=== PATIENT | male | born 1955 | race Caucasian/White ===

== ENCOUNTER 2018-09-12 10:01 | Emergency (ER) | payer MEDICARE ==
[2018-09-12 10:12] VITALS: BP 155/80
--- NOTE | 2018-09-12 10:17 | ED Physician Documentation ---
PD HPI WOUND RECHECK - Stated complaint Stated Complaint: STITCH REMOVAL - Chief complaint Chief Complaint: Wound - Histroy obtained from History obtained from: Patient - History of Present Illness Location: Right Hand Timing - onset: How many days ago (9 days ago at another facility while he was home is traveling now but due to have sutures removed.) Associated symptoms: No: Fever, Redness, Swelling Recently seen: Emergency Dept (9 days ago for suturing of finger lac.) Review of Systems Constitutional: denies: Fever, Chills Neurologic: denies: Focal weakness, Numbness PD PAST MEDICAL HISTORY - Past Medical History Cardiovascular: None Endocrine/Autoimmune: None - Present Medications Home Medications: Ambulatory Orders Medication Instructions Recorded Confirmed Bisoprolol Fumarate/Hctz 1 each PO DAILY 09/12/18 09/12/18 [Bisoprolol-Hctz 10-6.25 mg Tab] Levothyroxine Sodium [Synthroid] 25 mcg PO 09/12/18 Omeprazole 40 mg PO 09/12/18 Valsartan 160 mg PO DAILY 09/12/18 09/12/18 - Allergies Allergies/Adverse Reactions: Allergies Allergy/AdvReac Type Severity Reaction Status Date / Time Penicillins Allergy Rash Verified 09/12/18 10:38 PD ED PE NORMAL - Vitals Vital signs reviewed: Yes - General General: Alert and oriented X 3, No acute distress, Well developed/nourished - Derm Derm: Normal color, Warm and dry - Extremities Extremities: Other (right hand with lac well healing at right index finger dorsal MCP, with good closure. ) - Neuro Neuro: No motor deficit, No sensory deficit Results - Vitals Vitals: Vital Signs - 24 hr 09/12/18 10:11 Temperature 36.8 C Heart Rate 49 L Respiratory 18 Rate Blood Pressure 155/80 H O2 Saturation 98 Oxygen O2 Source Room air PD MEDICAL DECISION MAKING - ED course Complexity details: considered differential (healed wound for suture removal), d/w patient Departure - Departure Disposition: 01 Home, Self Care Clinical Impression: Visit for suture removal Condition: Stable Record reviewed to determine appropriate education?: Yes Instructions: ED Wound Check Sutr Remove No Infec Comments: Your wound appears good and should be able to do regular activity with the sutures out. Recheck if signs of infection. Discharge Date/Time: 09/12/18 11:19
== END 2018-09-12 11:19 | disposition home or self-care (01) ==
LOC: ED 10:01
DX: S61.210D Laceration without foreign body of right index finger without damage to nail, subsequent encounter (principal)
CPT/HCPCS: 99281; 99283

== ENCOUNTER 2018-12-11 10:44 | Emergency (ER) | payer MEDICARE ==
[2018-12-11 10:59] VITALS: BP 148/79
--- NOTE | 2018-12-11 11:43 | XRAY Report ---
Reason: GLF pain Procedure Date: 12/11/2018 Accession Number: [id number] / [id number] Procedure: XR - Ribs w/PA Chest LT CPT Code: FULL RESULT: EXAM: LEFT RIB RADIOGRAPHY EXAM DATE: 12/11/2018 11:30 AM. CLINICAL HISTORY: GLF, left posterior lower rib pain. COMPARISON: None. TECHNIQUE: 1 view of the chest and 2 views of the ribs. FINDINGS: Bones: Oblique fracture with small displacement in the left posterior lateral eighth rib visualized. There is a slight shortening of the right distal clavicle with associated bony destructive appearance, likely a nonspecific benign finding. Lungs: No focal opacities. No pneumothorax. No pleural effusions. Mediastinum: Heart and mediastinal contours are unremarkable. Other: None. IMPRESSION: 1. Oblique fracture with small displacement in the left posterior lateral eighth rib without left pneumothorax or left pleural effusion. 2. Negative for acute cardiopulmonary process. RADIA
--- NOTE | 2018-12-11 12:34 | ED Physician Documentation ---
PD HPI TRUNK INJURY - Stated complaint Stated Complaint: GLF - Chief complaint Chief Complaint: Back Pain - History obtained from History obtained from: Patient - History of Present Illness Location: Posterior chest, Left chest Type of injury: Fall (he fell backward and landed on the ground, and did not hurt much with that, but then rolled over to the left to get up and rolled onto a rock, with abrupt pain left posterolateral chest/rib.) Timing - onset: How many days ago (3) Timing - duration: Days (3) Timing - details: Abrupt onset, Still present Quality: Pain, Sharp Worsened by: Moving, Palpating, Other (breathing) Associated symtptoms: No: Weakness, Numbness Similar symptoms before: Has not had sx before Review of Systems Constitutional: denies: Fever, Chills Nose: denies: Rhinorrhea / runny nose, Congestion Throat: denies: Sore throat Cardiac: reports: Chest pain / pressure (left posterolateral) Respiratory: denies: Dyspnea, Cough, Wheezing GI: denies: Abdominal Pain, Nausea, Vomiting Neurologic: denies: Confused, Altered mental status, Head injury PD PAST MEDICAL HISTORY - Past Medical History Past Medical History: No Cardiovascular: None Endocrine/Autoimmune: None - Past Surgical History Past Surgical History: Yes - Present Medications Home Medications: Ambulatory Orders Medication Instructions Recorded Confirmed Bisoprolol Fumarate/Hctz 1 each PO DAILY 09/12/18 12/11/18 [Bisoprolol-Hctz 10-6.25 mg Tab] Levothyroxine Sodium [Synthroid] 25 mcg PO DAILY 09/12/18 12/11/18 Omeprazole 40 mg PO DAILY 09/12/18 12/11/18 Valsartan 160 mg PO DAILY 09/12/18 12/11/18 Hydrocodone/Acetaminophen [[place] 1 each PO Q6H PRN #20 tablet 12/11/18 5-325 Tablet] Naproxen 500 mg PO BID #20 tablet 12/11/18 - Allergies Allergies/Adverse Reactions: Allergies Allergy/AdvReac Type Severity Reaction Status Date / Time meperidine [From Demerol] Allergy Hives Verified 12/11/18 10:59 Penicillins Allergy Rash Verified 12/11/18 10:59 - Social History Does the pt smoke?: No Smoking Status: Never smoker Does the pt drink ETOH?: Yes Does the pt have substance abuse?: No - Immunizations Immunizations are current?: Yes PD ED PE NORMAL - Vitals Vital signs reviewed: Yes - General General: Alert and oriented X 3, No acute distress, Well developed/nourished - HEENT HEENT: Atraumatic - Neck Neck: Supple, no meningeal sign, No bony TTP, No adenopathy - Cardiac Cardiac: RRR, No murmur - Respiratory Respiratory: Clear bilaterally, Other (left posterolateral chestwall about rib 7-10 area with local tenderness without crepitance. ) - Abdomen Abdomen: Soft, Non tender - Back Back: No CVA TTP, No spinal TTP - Derm Derm: Normal color, Warm and dry - Extremities Extremities: No tenderness to palpate, Normal ROM s pain - Neuro Neuro: Alert and oriented X 3, No motor deficit, Normal speech Results - Vitals Vitals: Vital Signs - 24 hr 12/11/18 10:56 Temperature 36.0 C L Heart Rate 69 Respiratory 20 Rate Blood Pressure 148/79 H O2 Saturation 99 Oxygen O2 Source Room air - Rads (name of study) chest with ribs Radiology: Prelim report reviewed (oblique line/fracture, nondisplaced, rib 8), EMP read contemporaneously, See rad report PD MEDICAL DECISION MAKING - ED course Complexity details: considered differential, d/w patient Departure - Departure Disposition: 01 Home, Self Care Clinical Impression: Rib fracture Qualifiers: Encounter type: initial encounter Rib fracture type: single rib Fracture type: closed Laterality: left Qualified Code(s): S22.32XA - Fracture of one rib, left side, initial encounter for closed fracture Condition: Stable Record reviewed to determine appropriate education?: Yes Instructions: ED Fx Rib Prescriptions: Hydrocodone/Acetaminophen [[place] 5-325 Tablet] 1 each PO Q6H PRN #20 tablet PRN Reason: Pain Naproxen 500 mg PO BID #20 tablet Comments: Activity as tolerated based on pain and discomfort. Some anti-inflammatory such as naproxen twice daily for the next 7 to 10 days. Take it with food. Use added pain medicine such as Tylenol or hydrocodone if needed for pain. Recheck if not better over the next week to week and a half. Discharge Date/Time: 12/11/18 13:26
[2018-12-11] MEDS ORDERED: HYDROcod/ACETAM 5/325 MG TABLET PO STA (13:02)
[2018-12-11] MEDS ORDERED: IBUPROFEN 600 MG TABLET PO STA (13:02)
== END 2018-12-11 13:26 | disposition home or self-care (01) ==
LOC: ED 10:44
DX: S22.32XA Fracture of one rib, left side, initial encounter for closed fracture (principal); W01.198A Fall on same level from slipping, tripping and stumbling with subsequent striking against other object, initial encounter; Y92.9 Unspecified place or not applicable
CPT/HCPCS: 71101; 99283; A9270

== ENCOUNTER 2020-12-17 15:33 | Emergency (ER) | payer MEDICARE ==
--- OUTSIDE RECORDS SUMMARY | 2020-12-17 16:00 | EXTERNAL MEDICAL SUMMARY RPT | Continuity of Care Document ---
:1955 Demographics Phone Unavailable Preferred Language Unknown Marital Status Unknown Congregational Affiliation Unknown Race Unknown Ethnic Group Unknown Author Organization [facility] Address [address] [id number] Phone Allergies Encounters Medications Problems Results
--- NOTE | 2020-12-17 16:37 | ED Physician Documentation ---
History of Present Illness - Stated complaint Stated Complaint: KNEE PAIN, CALF PAIN, S/P SURGERY - Chief complaint Chief Complaint: Ext Problem - History obtained from History obtained from: Patient - History of Present Illness Timing: How many days ago (9) Pain level max: 6 Pain level now: 5 - Additonal information Additional information: Patient is a 65-year-old male who presents to the emergency department with leg pain and swelling of the left lower extremity for the past 9 days. Had a left total knee arthroplasty 9 days ago. He states he has had bruising and swelling since that time. Contacted the on-call orthopedist today who recommended he come here to be evaluated for DVT. Nothing makes it better or worse. He was on warfarin after the surgery, but is not currently. No fevers. No chills. Worse with walking, better with rest. Review of Systems Constitutional: denies: Fever, Chills Cardiac: denies: Chest pain / pressure, Palpitations Respiratory: denies: Dyspnea, Cough, Wheezing Skin: denies: Rash PD PAST MEDICAL HISTORY - Past Medical History Cardiovascular: None Endocrine/Autoimmune: None - Past Surgical History Past Surgical History: Yes - Present Medications Home Medications: Ambulatory Orders Medication Instructions Recorded Confirmed Bisoprolol/Hydrochlorothiazide 1 each PO DAILY 09/12/18 12/11/18 [Bisoprolol-Hctz 10-6.25 mg Tab] Levothyroxine Sodium [Synthroid] 25 mcg PO DAILY 09/12/18 12/11/18 Omeprazole 40 mg PO DAILY 09/12/18 12/11/18 Valsartan 160 mg PO DAILY 09/12/18 12/11/18 Hydrocodone/Acetaminophen [[place] 1 each PO Q6H PRN #20 tablet 12/11/18 5-325 Tablet] Naproxen 500 mg PO BID #20 tablet 12/11/18 - Allergies Allergies/Adverse Reactions: Allergies Allergy/AdvReac Type Severity Reaction Status Date / Time meperidine [From Demerol] Allergy Hives Verified 12/17/20 15:49 Penicillins Allergy Rash Verified 12/17/20 15:49 - Social History Does the pt smoke?: No Smoking Status: Never smoker Does the pt drink ETOH?: Yes Does the pt have substance abuse?: No - Immunizations Immunizations are current?: Yes PD ED PE NORMAL - Vitals Vital signs reviewed: Yes - General General: Alert and oriented X 3, No acute distress - Derm Derm: Warm and dry - Extremities Extremities: Other (Left lower extremity without signs of infection. There is mild swelling along the entirety of the left lower leg along with bruising consistent with recent surgery. Mild calf tenderness. Neurovascular intact.) - Neuro Neuro: Alert and oriented X 3 - Psych Psych: Normal mood, Normal affect Results - Vitals Vitals: Vital Signs - 24 hr 12/17/20 12/17/20 12/17/20 15:41 17:49 18:33 Temperature 36.8 C Heart Rate 60 66 85 Respiratory 16 17 18 Rate Blood Pressure 142/78 H 198/108 H 190/95 H O2 Saturation 99 100 100 Oxygen O2 Source Room air - Rads (name of study) Duplex ultrasound left lower extremity Radiology: Prelim report reviewed, EMP read contemporaneously, See rad report (No DVT.) PD MEDICAL DECISION MAKING - ED course Complexity details: reviewed results, re-evaluated patient, considered differential, d/w patient, d/w family ED course: Patient with expected ecchymosis and swelling after left total knee replacement. Negative ultrasound for DVT. We will continue his regular postoperative aftercare and follow-up with his surgeon. Patient counseled regarding signs and symptoms for which I believe and urgent re-evaluation would be necessary. Patient with good understanding of and agreement to plan and is comfortable going home at this time This document was made in part using voice recognition software. While efforts are made to proofread this document, sound alike and grammatical errors may occur. Departure - Departure Disposition: 01 Home, Self Care Clinical Impression: Postop check Condition: Good Instructions: ED Wound Check Post Op No Infec Follow-Up: Jovi Chan MD [Primary Care Provider] - Within 1 week Comments: Your ultrasound does not show any blood clots today. The swelling appears typical for after your surgical procedure. Please follow-up with your surgeon for further care. Return if you worsen Discharge Date/Time: 12/17/20 18:33
[2020-12-17 18:34] VITALS: BP 190/95
--- NOTE | 2020-12-17 18:42 | Ultrasound Report ---
PROCEDURE: Duplex Ext Veins Left INDICATIONS: leg swelling, s/p L TKR x 9 days TECHNIQUE: Real-time imaging, as well as color and pulse Doppler interrogation, were performed of the lower extr emity deep veins from the inguinal ligament to the popliteal fossa. COMPARISON: None. FINDINGS: The deep veins are normally compressible, and free of intraluminal thrombus. Color and pu lse Doppler demonstrate normal phasic intraluminal flow. There is normal augmentation response to di stal compression maneuver. Peroneal and posterior tibial veins are patent. IMPRESSION: No left lower extremity DVT. Reviewed by: Corby Pablo MD on 12/17/2020 6:41 PM PDT Approved by: Corby Pablo MD on 12/17/2020 6:41 PM PDT Station ID: [id number]
== END 2020-12-17 18:33 | disposition home or self-care (01) ==
LOC: ED 15:33
DX: M79.662 Pain in left lower leg (principal); R22.42 Localized swelling, mass and lump, left lower limb; Z96.652 Presence of left artificial knee joint
CPT/HCPCS: 99281; 99284

== ENCOUNTER 2022-12-03 21:59 | Emergency (ER) | payer MEDICARE ==
[2022-12-03 22:47] LABS: BASOPHILS % (AUTO) 0.6 %; EOSINOPHILS # (AUTO) 0.1 10^3/uL (0.0-0.7); EOSINOPHILS % (AUTO) 1.9 %; HCT - HEMATOCRIT 30.3 % (42.0-52.0); LYMPHOCYTES # (AUTO) 2.2 10^3/uL (1.5-3.5); LYMPHOCYTES % (AUTO) 32.8 %; MEAN CORPUSCULAR HEMOGLOBIN 33.6 pg (27.0-31.0); MEAN CORPUSCULAR HGB CONC 36.3 g/dL (32.0-36.0); MEAN CORPUSCULAR VOLUME 92.7 fL (80.0-94.0); MEAN PLATELET VOLUME 10.4 fL (7.4-11.4); MONOCYTES # (AUTO) 0.7 10^3/uL (0.0-1.0); MONOCYTES % (AUTO) 10.3 %; NEUTROPHILS # (AUTO) 3.6 10^3/uL (1.5-6.6); PLT - PLATELET COUNT 230 10^3/uL (130-450); RED BLOOD COUNT 3.27 10^6/uL (4.70-6.10); RED CELL DISTRIBUTION WIDTH 11.4 % (12.0-15.0); WHITE BLOOD COUNT 6.7 x10^3/uL (4.8-10.8)
[2022-12-03 23:00] LABS: ALBUMIN 3.5 g/dL (3.2-5.5); ALBUMIN/GLOBULIN RATIO 0.9 (1.0-2.2); BILIRUBIN,TOTAL 0.5 mg/dL (0.2-1.0); CALCIUM 8.8 mg/dL (8.5-10.3); CREATININE 1.2 mg/dL (0.6-1.2); POTASSIUM 3.1 mmol/L (3.5-5.0); TOTAL PROTEIN 7.2 g/dL (6.7-8.2)
[2022-12-04] MEDS ORDERED: SODIUM CHLORIDE 0.9% 1,000 ML IV STA (00:04)
--- NOTE | 2022-12-04 00:04 | ED Physician Documentation ---
History of Present Illness - Stated complaint Stated Complaint: ABNORMAL LABS - Chief complaint Chief Complaint: General - History obtained from History obtained from: Patient - Additonal information Additional information: Advised to come to ED by his outpatient services director. 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 The GI that ordered these tests was called this evening regarding a critical result of sodium 120, and thus the GI physician contacted the patient and advised him to go to ED for further testing, treatment, and possible admission. Patient tells me he is asymptomatic. He denies nausea, dizziness, difficulty with mental focus/concentration. GI physician (Dr. Kika Huber) contacted me just before patient's ED arrival to discuss the case with me. He notes patient stopped budesonide three weeks ago. Dr. Huber is a GI doctor at [facility]. Review of Systems Constitutional: denies: Fever, Chills, Sweats Cardiac: reports: Reviewed and negative Respiratory: reports: Reviewed and negative GI: reports: Reviewed and negative Neurologic: denies: Generalized weakness, Focal weakness, Numbness, Confused, Altered mental status, Headache PD PAST MEDICAL HISTORY - Past Medical History Cardiovascular: None Endocrine/Autoimmune: None - Past Surgical History Past Surgical History: Yes - Present Medications Home Medications: Ambulatory Orders Medication Instructions Recorded Confirmed Bisoprolol/Hydrochlorothiazide 1 each PO DAILY 09/12/18 12/11/18 [Bisoprolol-Hctz 10-6.25 mg Tab] Levothyroxine Sodium [Synthroid] 25 mcg PO DAILY 09/12/18 12/11/18 Omeprazole 40 mg PO DAILY 09/12/18 12/11/18 Valsartan 160 mg PO DAILY 09/12/18 12/11/18 Hydrocodone/Acetaminophen [[place] 1 each PO Q6H PRN #20 tablet 12/11/18 5-325 Tablet] Naproxen 500 mg PO BID #20 tablet 12/11/18 - Allergies Allergies/Adverse Reactions: Allergies Allergy/AdvReac Type Severity Reaction Status Date / Time hydroxychloroquine Allergy Rash Verified 12/03/22 22:27 meperidine [From Demerol] Allergy Hives Verified 12/03/22 22:27 Penicillins Allergy Rash Verified 12/03/22 22:27 - Social History Does the pt smoke?: No Smoking Status: Never smoker Does the pt drink ETOH?: Yes Does the pt have substance abuse?: No - Immunizations Immunizations are current?: Yes PD ED PE NORMAL - Vitals Vital signs reviewed: Yes - General General: Alert and oriented X 3, No acute distress, Well developed/nourished - HEENT HEENT: Moist mucous membranes, Pharynx benign - Cardiac Cardiac: RRR, No murmur - Respiratory Respiratory: No respiratory distress, Clear bilaterally - Abdomen Abdomen: Soft, Non tender - Neuro Neuro: Alert and oriented X 3, 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, No motor deficit, No sensory deficit, Normal speech Results - Vitals Vitals: Oxygen O2 Source Room air - Labs Labs: Laboratory Tests 12/03/22 12/03/22 12/04/22 22:29 22:29 01:17 WBC 6.7 RBC 3.27 L Hgb 11.0 L Hct 30.3 L MCV 92.7 MCH 33.6 H MCHC 36.3 H RDW 11.4 L Plt Count 230 MPV 10.4 Neut # (Auto) 3.6 Lymph # (Auto) 2.2 [place] # (Auto) 0.7 Eos # (Auto) 0.1 Baso # (Auto) 0.0 Absolute Nucleated RBC 0.00 Nucleated RBC % 0.0 Sodium 124 L Potassium 3.1 L Chloride 85 L Carbon Dioxide 26 Anion Gap 13.0 BUN 14 Creatinine 1.2 Estimated GFR (MDRD) 60 L Glucose 81 Serum Osmolality 278 L Calcium 8.8 Total Bilirubin 0.5 AST 31 ALT 27 Alkaline Phosphatase 37 L Total Protein 7.2 Albumin 3.5 Globulin 3.7 Albumin/Globulin Ratio 0.9 L Triglycerides Cholesterol LDL Cholesterol, Calc VLDL Cholesterol HDL Cholesterol LDL/HDL Ratio Cholesterol/HDL Ratio Lipase 49 TSH Urine Osmolality 197 Urine Sodium 12/04/22 12/04/22 12/04/22 01:17 01:23 01:23 WBC RBC Hgb Hct MCV MCH MCHC RDW Plt Count MPV Neut # (Auto) Lymph # (Auto) [place] # (Auto) Eos # (Auto) Baso # (Auto) Absolute Nucleated RBC Nucleated RBC % Sodium 125 L Potassium 3.1 L Chloride 84 L Carbon Dioxide 26 Anion Gap 15.0 H BUN 14 Creatinine 1.1 Estimated GFR (MDRD) 66 L Glucose 85 Serum Osmolality Calcium 8.9 Total Bilirubin AST ALT Alkaline Phosphatase Total Protein Albumin Globulin Albumin/Globulin Ratio Triglycerides 107 Cholesterol 217 H LDL Cholesterol, Calc 76 VLDL Cholesterol 21 HDL Cholesterol 120 LDL/HDL Ratio 0.6 Cholesterol/HDL Ratio 1.8 Lipase TSH Urine Osmolality Urine Sodium 27.0 12/04/22 12/04/22 01:23 04:46 WBC RBC Hgb Hct MCV MCH MCHC RDW Plt Count MPV Neut # (Auto) Lymph # (Auto) [place] # (Auto) Eos # (Auto) Baso # (Auto) Absolute Nucleated RBC Nucleated RBC % Sodium 129 L Potassium 3.0 L Chloride 90 L Carbon Dioxide 25 Anion Gap 14.0 H BUN 12 Creatinine 1.0 Estimated GFR (MDRD) 74 L Glucose 86 Serum Osmolality Calcium 8.7 Total Bilirubin AST ALT Alkaline Phosphatase Total Protein Albumin Globulin Albumin/Globulin Ratio Triglycerides Cholesterol LDL Cholesterol, Calc VLDL Cholesterol HDL Cholesterol LDL/HDL Ratio Cholesterol/HDL Ratio Lipase TSH 0.94 Urine Osmolality Urine Sodium PD Medical Decision Making - ED course Complexity details: reviewed results, re-evaluated patient, considered differential, d/w patient ED course: Sent to ED for hyponatremia, serum sodium 120. On initial draw in ED, sodium is 124 , potassium 3.1. Patient is asymptomatic, particularly when asked of symptoms that would typically be associated with hyponatremia (such as nausea, malaise, difficulty with mental focus, dizziness, GUO). He is given 1 liter NS IV over four hours (250cc/hr). During ED stay, his sodium level increased to 125, then 129 prior to d/c. He is given PO KCL 20meq although final potassium before discharge decreased from 3.1 to 3.0 (given another 20meq KCL prior to d/c). Normal lipid profile (except 217 cholesterol; this is checked because high lipids can cause falsely low sodium level), TSH normal (0.94; hyponatremia can be associated with hypothyroidism). Urine sodium 22, but urine osmoloality and serum osmolality are pending at time of d/c (I contacted the lab and these are "send-out" labs, estimated time to result is 3-5 days). Amongst the possible causes of hyponatremia in this patient's particular situation, thiazide diuretics remain on the differential. He says he takes these for HTN, and that he measures his blood pressures regularly at home and has been running normal blood pressures with some low blood pressures yesterday (though not today) which he attributed to heavy yard work that day. Given that his pressures have been normal / low, and thiazide diuretics could be contributing to, possibly even causing, the hyponatremia, I advised him to stop his thiazide diuretic medication (HCTZ, including the combination antihypertensive with HCTZ in it) for the few days until he is scheduled to meet with his PMD. In my discussion with the GI physician, the cessation of budesonide was raised as possible contributing or causative factor, and some thought was given to stress-dose steroid with rx for taper. After further thought and discussion , it was decided to hold off on reintroduction of steroids (including stress dose such as 100mg hydrocortisone), as the three-week gap since last steroid would seem beyond the timeframe in which such a factor would still be a reasonable contributor/cause to electrolyte abnormality. I discussed test results with patient and return precautions were discussed. He is already scheduled for follow up with PMD in a few days, and GI indicates he will also follow up with patient within the next few days. Departure - Departure Disposition: 01 Home, Self Care Clinical Impression: Hyponatremia, Hypokalemia Condition: Good Instructions: ED Hyponatremia, ED Potassium Deficiency Comments: Your sodium level was very low yesterday on the outpatient test (sodium was 120); this was the reason you were sent to the emergency department for evaluation and treatment. [facility], your sodium level was 124. You were given fluids through the IV which included sodium, and, eventually, your sodium level increased to 129. This is still low (the lower end of the normal range is 135), but not low enough to warrant further treatment nor testing from an emergency nor inpatient standpoint. Certainly, you need to follow-up with your primary care provider regarding the low sodium. Further tests might be needed, and treatment or changing of medications might improve the sodium level or entirely resolve the low sodium issue. As we discussed, one possible cause would be the thiazide diuretic medication that you are taking (HCTZ, hydrochlorothiazide). You have indicated that your primary care provider is going to reevaluate you in the next few days; I think it is appropriate for you to stop the medications that contain HCTZ/hydrochlorothiazide until you see your primary care provider. Continue to measure your blood pressure on a daily basis. You can restart those medications if your blood pressure becomes too high (I would use 160 or higher as the cut off for the systolic for when you should restart the medication and/or 90 or higher for when to restart will regarding the diastolic or lower number). If your blood pressure runs a little bit high for the next few days, it should not cause any problems. High blood pressure tends to cause problems over time and, unless it is particularly high, should not cause any problems over the course of days or even a week. The reason I am recommending to stop those medications is thiazide diuretic such as HCTZ is one potential cause of low sodium. If your sodium levels normalize after stopping those medications, this might provide the answer as to the cause of your low sodium. In the emergency department tonight, a lipid panel was performed because particularly high lipid levels can cause a "false low" sodium level. Your lipid levels are all normal (your cholesterol level was mildly elevated at 217). I also checked your TSH; this is a thyroid test. This was checked because low thyroid (hypothyroid) can also cause low sodium. However, this test result was normal. Your urine sodium was 27. This test result needs to be interpreted along with other tests that are still pending, but your primary care provider can follow-up for those results. The other test that are pending are urine osmolality and serum osmolality (these tests are sent to another hospital and therefore take a few days to result). I am including the urine sodium level here for the benefit of the doctor with whom you follow-up. As we discussed, your potassium level was also low. The initial potassium level was 3.1, with a low normal being 3.5. You are given some potassium orally, but on recheck before discharge, the potassium level was 3.0. You are given a second dose of potassium orally. It is important that you mention the low potassium level to your primary care provider, as they will likely want to also recheck this level in the coming few days or week. Discharge Date/Time: 12/04/22 06:22
[2022-12-04] MEDS ORDERED: POTASSIUM CHLORIDE 20 MEQ TABLET PO STA ×2 (01:40→06:07)
[2022-12-04 01:44] LABS: CHOL/HDL RATIO 1.8 (<5.0); CHOLESTEROL 217 mg/dL; HDL CHOLESTEROL 120 mg/dL; LDL CHOLESTEROL,CALCULATED 76 mg/dL; LDL/HDL RATIO 0.6 (<3.6); TRIGLYCERIDES 107 mg/dL; VLDL CHOLESTEROL 21 mg/dL
[2022-12-04 04:31] LABS: CALCIUM 8.9 mg/dL (8.5-10.3); CREATININE 1.1 mg/dL (0.6-1.2); POTASSIUM 3.1 mmol/L (3.5-5.0)
[2022-12-04] MEDS ORDERED: SODIUM CHLORIDE 0.9% 500 ML IV STA (04:52)
[2022-12-04 05:00] LABS: CALCIUM 8.7 mg/dL (8.5-10.3)
[2022-12-04 06:11] VITALS: BP 149/84
[2022-12-05 14:09] LABS: OSMOLALITY 278 mOsmol/kg (280-301); OSMOLALITY URINE 197 mOsmol/kg (.)
== END 2022-12-04 06:22 | disposition home or self-care (01) ==
LOC: ED 21:59
DX: E87.1 Hypo-osmolality and hyponatremia (principal); E87.6 Hypokalemia; I10 Essential (primary) hypertension; K52.839 Microscopic colitis, unspecified
CPT/HCPCS: 36415; 80048; 80053; 80061; 83690; 83930; 83935; 84300; 84443; 85025; 96360; 96361; 99283; 99284; A9270; 83721

== ENCOUNTER 2024-02-05 10:22 | Outpatient (CLI) | payer MEDICARE ==
--- NOTE | 2024-02-05 10:54 | XRAY Report ---
PROCEDURE: Hand 3+V LT INDICATIONS: PAIN IN LEFT HAND TECHNIQUE: 3 views of the hand(s) acquired. COMPARISON: None. FINDINGS: Bones: Displaced fourth proximal phalange fracture. No suspicious bony lesions. Polyarticular osteoa rthritic degenerative changes. Soft tissues: No suspicious soft tissue calcifications or masses. IMPRESSION: Fourth proximal phalange fracture. Reviewed by: Bernice Ness MD, PhD on 02/05/2024 10:53 AM PDT Approved by: Bernice Ness MD, PhD on 02/05/2024 10:53 AM PDT Station ID: [id number]
== END 2024-02-05 10:23 | disposition home or self-care (01) ==
LOC: DI 10:22
PROVIDERS: ATTEND Physician Assistant
DX: S62.615A Displaced fracture of proximal phalanx of left ring finger, initial encounter for closed fracture (principal)

== ENCOUNTER 2024-03-09 08:52 | Outpatient (CLI) | payer MEDICARE ==
--- NOTE | 2024-03-09 14:11 | XRAY Report ---
PROCEDURE: Finger(s) LT INDICATIONS: DISPLACED FX OF PROXIMAL PHALANX L RING FINGER TECHNIQUE: AP hand, 2 views of the fourth finger(s) acquired. COMPARISON: 02/05/2024 FINDINGS: Bones: Mildly displaced and comminuted fracture lucency at the fourth proximal phalanx is similar to prior. There is no significant bridging callus. Background moderate degenerative changes. Soft tissues: No suspicious calcifications. IMPRESSION: Similar mildly displaced and comminuted fracture of the fourth proximal phalanx. There is no signific ant evidence of bridging callus at this time. Reviewed by: Brendon Pete MD on 03/09/2024 2:10 PM PDT Approved by: Brendon Pete MD on 03/09/2024 2:10 PM PDT Station ID: [id number]
== END 2024-03-09 08:53 | disposition home or self-care (01) ==
LOC: DI 08:52
PROVIDERS: ATTEND Orthopaedic Surgery
DX: S62.615A Displaced fracture of proximal phalanx of left ring finger, initial encounter for closed fracture (principal)

== ENCOUNTER 2024-03-18 16:57 | Inpatient (IN) | payer MEDICARE ==
--- NOTE | 2024-03-18 17:38 | ED Physician Documentation ---
PD HPI ABD PAIN - Stated complaint Stated Complaint: DIZZY/NAUSEA/GI - Chief complaint Chief Complaint: Abd Pain - History obtained from History obtained from: Patient - Additional information Additional information: 68-year-old gentleman with history of microscopic colitis on Entyvio. His GI is in [place]. He broke a finger in January and has been taking frequent naproxen since then. Starting 2 days ago he developed dark and tarry stools and today developed presyncope and one episode of vomiting with a large diarrheal bowel movement on arrival. He has a history of Barahona's as well. Is on a PPI. No history of GI bleeding. PD PAST MEDICAL HISTORY - Past Medical History Past Medical History: Yes Cardiovascular: None Endocrine/Autoimmune: None - Past Surgical History Past Surgical History: Yes - Present Medications Home Medications: Ambulatory Orders Medication Instructions Recorded Confirmed Bisoprolol/Hydrochlorothiazide 1 each PO DAILY 09/12/18 12/11/18 [Bisoprolol-Hctz 10-6.25 mg Tab] Levothyroxine Sodium [Synthroid] 25 mcg PO DAILY 09/12/18 12/11/18 Omeprazole 40 mg PO DAILY 09/12/18 12/11/18 Valsartan 160 mg PO DAILY 09/12/18 12/11/18 Hydrocodone/Acetaminophen [[place] 1 each PO Q6H PRN #20 tablet 12/11/18 5-325 Tablet] Naproxen 500 mg PO BID #20 tablet 12/11/18 - Allergies Allergies/Adverse Reactions: Allergies Allergy/AdvReac Type Severity Reaction Status Date / Time hydroxychloroquine Allergy Rash Verified 03/18/24 17:25 meperidine [From Demerol] Allergy Hives Verified 03/18/24 17:25 Penicillins Allergy Rash Verified 03/18/24 17:25 - Social History Does the pt smoke?: No Smoking Status: Never smoker Does the pt drink ETOH?: Yes Does the pt have substance abuse?: No - Immunizations Immunizations are current?: Yes PD ED PE NORMAL - Vitals Vital signs reviewed: Yes - General General: Alert and oriented X 3, No acute distress - Cardiac Cardiac: RRR, No murmur - Respiratory Respiratory: No respiratory distress, Clear bilaterally - Abdomen Abdomen: Soft, Non tender - Neuro Neuro: Alert and oriented X 3 Eye Opening: Spontaneous Motor: Obeys Commands Verbal: Oriented GCS Score: 15 Results - Vitals Vitals: Vital Signs - 24 hr 03/18/24 03/18/24 17:25 17:27 Temperature 36.9 C Heart Rate 88 61 Respiratory 16 Rate Blood Pressure 108/67 127/80 O2 Saturation 97 96 Oxygen O2 Source Room air - Labs Labs: Laboratory Tests 03/18/24 03/18/24 03/18/24 17:35 17:35 17:35 WBC RBC Hgb Hct MCV MCH MCHC RDW Plt Count MPV Neut # (Auto) Lymph # (Auto) [place] # (Auto) Eos # (Auto) Baso # (Auto) Absolute Nucleated RBC Nucleated RBC % PT 12.0 INR 1.1 Sodium 130 L Potassium 4.4 Chloride 98 L Carbon Dioxide 23 Anion Gap 9.0 BUN 55 H Creatinine 1.3 Estimated GFR (MDRD) 55 L Glucose 127 H Calcium 9.1 Total Bilirubin 0.5 AST 15 ALT 10 Alkaline Phosphatase 24 L Total Protein 6.5 Albumin 3.4 Globulin 3.1 Albumin/Globulin Ratio 1.1 Blood Type A POSITIVE Blood Type Recheck Antibody Screen NEGATIVE Crossmatch IS Only See Detail 03/18/24 03/18/24 17:39 17:39 WBC 6.1 RBC 1.98 L Hgb 7.0 L* Hct 20.3 L MCV 102.5 H MCH 35.4 H MCHC 34.5 RDW 12.0 Plt Count 206 MPV 10.5 Neut # (Auto) 4.0 Lymph # (Auto) 1.6 [place] # (Auto) 0.4 Eos # (Auto) 0.1 Baso # (Auto) 0.0 Absolute Nucleated RBC 0.00 Nucleated RBC % 0.0 PT INR Sodium Potassium Chloride Carbon Dioxide Anion Gap BUN Creatinine Estimated GFR (MDRD) Glucose Calcium Total Bilirubin AST ALT Alkaline Phosphatase Total Protein Albumin Globulin Albumin/Globulin Ratio Blood Type Blood Type Recheck A POSITIVE Antibody Screen Crossmatch IS Only PD Medical Decision Making - ED course ED course: 68-year-old gentleman with microscopic colitis and history of Barahona's esophagus on a PPI has been taking naproxen lately and now presents with dark tarry stools and presyncope. He is hemodynamically stable. Benign abdominal examination. Lab work demonstrates a macrocytic anemia with hemoglobin of 7, normal INR 1.1. Chemistry panel was generally unremarkable save mild hyponatremia. He was administered IV Protonix and fluids and sent over for CT angiography. 1 unit of blood was readied and order for transfusion made. I did discuss the case by phone with our on-call surgeon, Dr. Tejas Ledesma who is happy to follow along and do EGD if necessary. Care Dr. Ching at 7 PM shift change with plan to follow-up on CTA, and medicine consult for admit. Departure - Departure Disposition: 66 [facility] DC/Xfer Clinical Impression: Upper GI bleed Condition: Serious Forms: PCP List
[2024-03-18 17:45] LABS: BASOPHILS % (AUTO) 0.7 %; EOSINOPHILS # (AUTO) 0.1 10^3/uL (0.0-0.7); EOSINOPHILS % (AUTO) 0.8 %; HCT - HEMATOCRIT 20.3 % (42.0-52.0); LYMPHOCYTES # (AUTO) 1.6 10^3/uL (1.5-3.5); LYMPHOCYTES % (AUTO) 26.3 %; MEAN CORPUSCULAR HEMOGLOBIN 35.4 pg (27.0-31.0); MEAN CORPUSCULAR HGB CONC 34.5 g/dL (32.0-36.0); MEAN CORPUSCULAR VOLUME 102.5 fL (80.0-94.0); MEAN PLATELET VOLUME 10.5 fL (7.4-11.4); MONOCYTES # (AUTO) 0.4 10^3/uL (0.0-1.0); MONOCYTES % (AUTO) 6.9 %; PLT - PLATELET COUNT 206 10^3/uL (130-450); RED BLOOD COUNT 1.98 10^6/uL (4.70-6.10); WHITE BLOOD COUNT 6.1 x10^3/uL (4.8-10.8)
[2024-03-18] MEDS ORDERED: iohexoL-300 100 ML VIAL ONE (17:46)
[2024-03-18 17:49] LABS: INR 1.1 (0.8-1.2)
[2024-03-18] MEDS: SODIUM CHLORIDE 0.9% 1,000 ML IV STA (17:54)
[2024-03-18] MEDS: PANTOPRAZOLE 40 MG VIAL IVP STA (17:54)
[2024-03-18 17:59] LABS: ALBUMIN 3.4 g/dL (3.2-5.5); ALBUMIN/GLOBULIN RATIO 1.1 (1.0-2.2); BILIRUBIN,TOTAL 0.5 mg/dL (0.2-1.0); CALCIUM 9.1 mg/dL (8.5-10.3); CREATININE 1.3 mg/dL (0.6-1.3); POTASSIUM 4.4 mmol/L (3.5-4.5); TOTAL PROTEIN 6.5 g/dL (6.4-8.9)
[2024-03-18] MEDS: iohexoL-300 100 ML VIAL IVP ONE (18:49)
--- NOTE | 2024-03-18 19:03 | ED Physician Documentation ---
ED Addendum - Addendum Addendum: 03/18/24 19:03 68yo M w/h/o Barahona's, microscopic colitis on Entyvio, naproxen after prior injury presented with melena, presyncope, vomiting non bloody. Hgb 7, with prior 11. He is receiving protonix, 1u pRBC, with CTA pending. Surgery has been consulted for endoscopy tomorrow. PLAN: when CTA complete, discuss admission with hospitalist. 03/18/24 19:52 On my review of workup, patient had hemoglobin of 7 as discussed, macrocytic, with no leukocytosis or thrombocytopenia. INR within normal limits. CMP with hyponatremia to 130, no recent for comparison, no LFT elevation. CT radiology raed below. I agree with radiology reads of imaging on my independent review of imaging: "FINDINGS: Image quality: Diagnostic. Aorta: Atherosclerotic vascular calcifications. No evidence for dissection. No evidence for aneurysmal dilatation. Origins of the celiac trunk SMA, JULIANNE, and bilateral renal arteries appear patent. Mesenteric vessels are opacified. Right pelvic arteries: Patent without evidence for aneurysmal dilatation, dissection, or occlusion. Left pelvic arteries: Patent without evidence for aneurysmal dilatation, dissection or occlusion. Extravascular soft tissues: Lung bases demonstrate bibasilar atelectasis and likely mild subpleuralscarring. Heart size is normal. Liver and spleen are normal in size and enhancement. Gallbladder is unremarkable. Biliary system is non dilated. Pancreas enhances normally. No adrenal nodules. Kidneys are normal in size and enhancement, without hydronephrosis. No free fluid or air. No retroperitoneal or mesenteric adenopathy. Small fat-containing umbilical hernia without acute inflammation. No suspicious bony lesions. No acute vertebral body compression fractures. Multilevel spondylosis. There is mild wall thickening of the distal stomach and distal duodenum slightly more than expected for degree of distention. No evidence for acute inflammatory changes or findings to suggest perforation/organized fluid collection. There is also moderate colonic diverticulosis without evidence for acute diverticulitis. There is circumferential wall thickening of the sigmoid colon andrectum which appears more prominent than expected for degree of distention. No evidence for extravasation of contrast into the stomach, small bowel, or colon to localize possible source of gastrointestinal bleeding. Hyperdense material noted in sigmoid diverticula which is also visualizedon the noncontrast images and supports hyperdense material within the diverticula rather than hemorrhage. IMPRESSION: CT angiogram of the abdomen and pelvis without findings to localize potential source of gastrointestinal bleeding. Mild wall thickening of the distal stomach, and duodenum greater than expected for degree of distention without associated inflammatory changes. Consider further evaluation with endoscopy. Colonic diverticulosis without acute diverticulitis. There is however, greater than expected wall thickening of the sigmoid colon and rectum which may represent proctocolitis either infectious or inflammatory etiology. No evidence for abdominal aortic aneurysm or acute aortic syndrome. Other chronic/nonacute findings as above. Reviewed by: Bert Yang MD on 03/18/2024 7:24 PM PDT " I placed hospitalist consult at roughly 7:32PM to discuss admission. At this juncture, while alternative etiologies are possible in setting of reported colitis, PUD seems most likely as source of bleed. Patient afebrile, with no leukocytosis, not septic appearing. I spoke with Dr. Shepard at 7:50PM, reviewing case on phone, including there are incidental findings on CT. He kindly accepts patient for admission. Admitting in stable condition.
--- NOTE | 2024-03-18 19:25 | CT Report ---
PROCEDURE: Angio Abdomen/Pelvis INDICATIONS: ugi bleed CONTRAST: 100ml [id number] TECHNIQUE: After the administration of intravenous contrast, 2.5 mm thick sections acquired from the diaphragm t o the symphysis. 10 mm maximum-intensity projection (MIP) reformats were then acquired. For radiati on dose reduction, the following was used: automated exposure control, adjustment of mA and/or kV ac cording to patient size. COMPARISON: No priors examinations available for review FINDINGS: Image quality: Diagnostic. Aorta: Atherosclerotic vascular calcifications. No evidence for dissection. No evidence for aneurysm al dilatation. Origins of the celiac trunk SMA, JULIANNE, and bilateral renal arteries appear patent. Mese nteric vessels are opacified. Right pelvic arteries: Patent without evidence for aneurysmal dilatation, dissection, or occlusion. Left pelvic arteries: Patent without evidence for aneurysmal dilatation, dissection or occlusion. Extravascular soft tissues: Lung bases demonstrate bibasilar atelectasis and likely mild subpleural scarring. Heart size is normal. Liver and spleen are normal in size and enhancement. Gallbladder i s unremarkable. Biliary system is non dilated. Pancreas enhances normally. No adrenal nodules. Ki dneys are normal in size and enhancement, without hydronephrosis. No free fluid or air. No retroperi toneal or mesenteric adenopathy. Small fat-containing umbilical hernia without acute inflammation. N o suspicious bony lesions. No acute vertebral body compression fractures. Multilevel spondylosis. There is mild wall thickening of the distal stomach and distal duodenum slightly more than expected f or degree of distention. No evidence for acute inflammatory changes or findings to suggest perforatio n/organized fluid collection. There is also moderate colonic diverticulosis without evidence for acut e diverticulitis. There is circumferential wall thickening of the sigmoid colon and rectum which appe ars more prominent than expected for degree of distention. No evidence for extravasation of contrast into the stomach, small bowel, or colon to localize possible source of gastrointestinal bleeding. Hyp erdense material noted in sigmoid diverticula which is also visualized on the noncontrast images and supports hyperdense material within the diverticula rather than hemorrhage. IMPRESSION: CT angiogram of the abdomen and pelvis without findings to localize potential source of gastrointesti nal bleeding. Mild wall thickening of the distal stomach, and duodenum greater than expected for degree of distenti on without associated inflammatory changes. Consider further evaluation with endoscopy. Colonic diverticulosis without acute diverticulitis. There is however, greater than expected wall thi ckening of the sigmoid colon and rectum which may represent proctocolitis either infectious or inflam matory etiology. No evidence for abdominal aortic aneurysm or acute aortic syndrome. Other chronic/nonacute findings as above. Reviewed by: Bert Yang MD on 03/18/2024 7:24 PM PDT Approved by: Bert Yang MD on 03/18/2024 7:24 PM PDT Station ID: [id number]
[2024-03-18] MEDS ORDERED: SODIUM CHLORIDE FLUSH 0.9% 10 ML SYRINGE IVP PRN (20:05)
[2024-03-18] MEDS ORDERED: hydrALAZINE INJ 20 MG/ML VIAL IVP PRN (20:11)
--- NOTE | 2024-03-18 20:16 | HISTORY & PHYSICAL EXAMINATION ---
Chief Complaint - Chief Complaint Chief Complaint: Dizziness and dark tarry stools History of Present Illness - Admitted From Admitted From:: ED - History Obtained From Records Reviewed: EMR History obtained from: Patient and and ED Exam Limitations: Telemedicine - History of Present Illness HPI Comment/Other: 68M c microscopy colitis, htn, and hypothyroidism who presents to the ED with dizziness that started this morning when he woke up. He has been having dark tarry stools for the past three days. Patient reports being on Advil and then recently Naproxen for a broken finger. Patient denies any new medications. No trauma. No n/v. No chest pain. No palpitation. No SOB. No trauma. No LOC Here in the ED, patient is noted for hgb 7 which is drop from baseline 11. ED spoke with Gen surgery who will consult and provide endoscopy. History - Past Medical History Cardiovascular: reports: None Endocrine/Autoimmune: reports: None MRSA Hx?: No Meds/Allgy - Home Medications Home Medications: Ambulatory Orders Medication Instructions Recorded Confirmed Bisoprolol/Hydrochlorothiazide 1 each PO DAILY 09/12/18 12/11/18 [Bisoprolol-Hctz 10-6.25 mg Tab] Levothyroxine Sodium [Synthroid] 25 mcg PO DAILY 09/12/18 12/11/18 Omeprazole 40 mg PO DAILY 09/12/18 12/11/18 Valsartan 160 mg PO DAILY 09/12/18 12/11/18 Hydrocodone/Acetaminophen [[place] 1 each PO Q6H PRN #20 tablet 12/11/18 5-325 Tablet] Naproxen 500 mg PO BID #20 tablet 12/11/18 - Allergies Allergies/Adverse Reactions: Allergies Allergy/AdvReac Type Severity Reaction Status Date / Time hydroxychloroquine Allergy Rash Verified 03/18/24 17:25 meperidine [From Demerol] Allergy Hives Verified 03/18/24 17:25 Penicillins Allergy Rash Verified 03/18/24 17:25 Review of Systems - Other Findings Other Findings: negative unless mentioned differently Exam - Vital Signs Reviewed Vital Signs: Yes Vital Signs: Vital Signs x48h Temp Pulse Pulse Resp BP BP Pulse Ox 03/18/24 19:24 37.4 C 71 18 110/71 100 03/18/24 19:02 37.5 C 69 16 117/76 100 03/18/24 17:27 61 127/80 96 03/18/24 17:25 36.9 C 88 16 108/67 97 - Physical Exam General Appearance: positive: No acute distress, Alert Eyes Bilateral: positive: Normal inspection ENT: positive: ENT inspection nml Neck: positive: Nml inspection, Trachea midline Respiratory: positive: No respiratory distress Cardiovascular: positive: Regular rate & rhythm (per ED) Abdomen: positive: Non-tender (per ED) Skin: positive: Color nml Neurologic/Psychiatric: positive: Oriented x3, CN's nml (2-12) Conclusion/Plan - Problem List (1) Upper GI bleed Conclusion/Plan: 2/2 NSAID use. Gastritis vs PUD. Stop NSAID and cover c acetaminophen and [place]. PPI gtt. NPO. monitor hgb/hct q6. patient accepts blood transfusion and u nderstand risk and benefit. ED ordered patient 1 unit in the ED. Gen surg consult for EGD. (2) Anemia Conclusion/Plan: 2/2 UGIB. getting 1 unit transfusion. monitor hgb/hct q 6 (3) Hypertension Conclusion/Plan: managed. hold home antihypertensive. prn hydralazine. monitor BP c repeat vital checks (4) Hypothyroidism Conclusion/Plan: managed. restart home levothyroxine. - Lab Results Lab results reviewed: Yes Fish Bones: 03/18/24 17:39 03/18/24 17:35 - Diagnostic Imaging Results Diagnostic Imaging Results: positive: Final report reviewed Diagnostic Imaging Results Comments: reviewed Core Measures - Anticipated LOS I expect patient to be DC'd or transferred within 96 hours.: No - Issues Hospital Issues and Management Plan: The patient consented to receive this telemedicine service, which I performed via live two-way audiovisual equipment. The patient is at ([facility]) and I am physically in [facility]. A nurse assisted me in the visit. - DVT/VTE - Prophylaxis VTE/DVT Device ordered at admit?: Yes Telemedicine Consult Details - Provider Location & Consult Time Telemedicine consultation conducted via videoconferencing?: Yes List names and roles of persons who participated in consult:: Patient. . ED Telemedicine provider location:: [facility] Time Telemedicine consult began:: 19:48 Time Telemedicine consult completed:: 20:38
[2024-03-18] MEDS: SODIUM CHLORIDE 0.9% 1,000 ML IV SCH (21:31)
[2024-03-18] MEDS: PANTOPRAZOLE 40 MG in SODIUM CHLORIDE 0.9% 100ML 100 ML IV ONE (21:31)
[2024-03-18] MEDS: ACETAMINOPHEN 325 MG TABLET PO PRN (21:38)
[2024-03-18] MEDS: PANTOPRAZOLE 80 MG in SODIUM CHLORIDE 0.9% 100ML 100 ML IV SCH (22:12)
[2024-03-19] MEDS: SODIUM CHLORIDE FLUSH 0.9% 10 ML SYRINGE IVP SCH (01:00)
[2024-03-19] MEDS: HYDROcod/ACETAM 5/325 MG TABLET PO PRN (02:09)
[2024-03-19 05:42] LABS: CALCIUM 8.5 mg/dL (8.5-10.3); CREATININE 1.2 mg/dL (0.6-1.3); MAGNESIUM 1.6 mg/dL (1.7-2.3); PHOSPHORUS 3.5 mg/dL (2.5-5.0); POTASSIUM 4.1 mmol/L (3.5-4.5)
[2024-03-19 05:49] LABS: HGB - HEMOGLOBIN 7.1 g/dL (14.0-18.0); MEAN CORPUSCULAR HEMOGLOBIN 34.8 pg (27.0-31.0); MEAN CORPUSCULAR HGB CONC 35.7 g/dL (32.0-36.0); MEAN CORPUSCULAR VOLUME 97.5 fL (80.0-94.0); MEAN PLATELET VOLUME 10.5 fL (7.4-11.4); RED BLOOD COUNT 2.04 10^6/uL (4.70-6.10); RED CELL DISTRIBUTION WIDTH 13.8 % (12.0-15.0); WHITE BLOOD COUNT 4.9 x10^3/uL (4.8-10.8)
[2024-03-19 05:50] LABS: HCT - HEMATOCRIT 20.4 % (42.0-52.0)
--- NOTE | 2024-03-19 08:08 | CONSULTATION NOTE ---
Referring Provider Consult Date: 03/19/24 Chief Complaint - Chief Complaint Chief Complaint: he was having dark bms for several days and started to feel weak History of Present Illness - History Obtained From Records Reviewed: yes History obtained from: pt Exam Limitations: none - History of Present Illness HPI Comment/Other: recently started nsaids. history barrretts esophagus and egd every 2 years for the last 15 years. last egd a 3 to 4 months ago in [place]. he states his barretts has been controlled. he had a large bm and n/v last evening. he received blood since admit. today he feels much improved. no further bms and no nausea. History - Past Medical History Cardiovascular: reports: Hypertension Endocrine/Autoimmune: reports: None, HyPOthyroidism GI: reports: GI bleed, Other MRSA Hx?: No Meds/Allgy - Home Medications Home Medications: Ambulatory Orders Medication Instructions Recorded Confirmed Bisoprolol/Hydrochlorothiazide 1 each PO DAILY 09/12/18 12/11/18 [Bisoprolol-Hctz 10-6.25 mg Tab] Levothyroxine Sodium [Synthroid] 25 mcg PO DAILY 09/12/18 12/11/18 Omeprazole 40 mg PO DAILY 09/12/18 12/11/18 Valsartan 160 mg PO DAILY 09/12/18 12/11/18 Hydrocodone/Acetaminophen [[place] 1 each PO Q6H PRN #20 tablet 12/11/18 5-325 Tablet] Naproxen 500 mg PO BID #20 tablet 12/11/18 - Allergies Allergies/Adverse Reactions: Allergies Allergy/AdvReac Type Severity Reaction Status Date / Time hydroxychloroquine Allergy Rash Verified 03/18/24 17:25 meperidine [From Demerol] Allergy Hives Verified 03/18/24 17:25 Penicillins Allergy Rash Verified 03/18/24 17:25 Review of Systems - Other Findings Other Findings: 10 pt ros as above otherwise unremarkable Exam - Vital Signs Vital Signs: Vital Signs x48h Temp Pulse Resp BP Pulse Ox 03/19/24 04:57 36.8 C 58 L 14 137/64 H 98 - Physical Exam General Appearance: positive: No acute distress, Alert Eyes Bilateral: positive: PERRL, EOMI ENT: positive: No signs of dehydration Neck: positive: No JVD, Trachea midline Respiratory: positive: No respiratory distress Abdomen: positive: Non-tender, No distention Neurologic/Psychiatric: positive: Oriented x3 Conclusion/Plan - Problem List (1) Upper GI bleed Conclusion/Plan: clinically his ugi bleed has resolved. he feels much improved. agree with current care. egd is offered. he prefers to follow up with his gi md in [place]. ok to have clears and if his h/h remains stable soft diet later today. if he appears to still be bleeding plan egd later today. - Lab Results Lab results reviewed: Yes Fish Bones: 03/19/24 05:12 03/19/24 05:12
[2024-03-19] MEDS: LEVOTHYROXINE 25 MCG TABLET PO SCH (08:45)
--- NOTE | 2024-03-19 11:26 | PHARMACY PROGRESS NOTE ---
- Best Possible Medication History Admit Date and Time: 03/18/242004 Processed by: Pharmacy Medication History completed: Yes Patient Interview: Completed (PER SURESCRIPTS AND EFREN RECORDS IN ADDITION TO PT INTERVIEW) Secondary Source(s): Physician records, Insurance records As the person ultimately responsible for medication therapy, providers are able to order a medication from an existing home medication list in [facility] via the "Reconcile Routine" prior to Confirmation of that medication by youth accommodation support worker. Such practice is discouraged except when the physician, in their clinical judgment, deems that a medical need exists for a medication without regard to previous use.
--- NOTE | 2024-03-19 13:45 | ANESTHESIA ---
Pre-Anesthesia VS, & Labs - Diagnosis GI bleed, anemia - Procedure EGD Vital Signs: Temp Pulse Resp BP Pulse Ox O2 Flow Rate 37 C 55 L 18 126/67 100 03/19/24 12:31 03/19/24 12:31 03/19/24 12:31 03/19/24 12:31 03/19/24 12:31 Height: 5 ft 9 in Weight (kg): 70 kg Body Mass Index: 22.8 BMI Classification: Normal - NPO Last Food Intake: 1030- 1/2 cup melon - Lab Results Current Lab Results: Laboratory Tests 03/19/24 11:08: Hgb 6.3 L* 03/19/24 05:12: Sodium 133 L, Potassium 4.1, Chloride 104, Carbon Dioxide 22, Anion Gap 7.0, BUN 57 H, Creatinine 1.2, Estimated GFR (MDRD) 60 L, Glucose 93, Calcium 8.5, Phosphorus 3.5, Magnesium 1.6 L 03/19/24 05:12: WBC 4.9, RBC 2.04 L, Hgb 7.1 L, Hct 20.4 L, MCV 97.5 H, MCH 34.8 H, MCHC 35.7, RDW 13.8, Plt Count 150, MPV 10.5 03/19/24 02:11: Hgb 7.2 L 03/18/24 17:39: Blood Type Recheck A POSITIVE 03/18/24 17:39: WBC 6.1, RBC 1.98 L, Hgb 7.0 L*, Hct 20.3 L, MCV 102.5 H, MCH 35.4 H, MCHC 34.5, RDW 12.0, Plt Count 206, MPV 10.5, Neut # (Auto) 4.0, Lymph # (Auto) 1.6, [place] # (Auto) 0.4, Eos # (Auto) 0.1, Baso # (Auto) 0.0, Absolute Nucleated RBC 0.00, Nucleated RBC % 0.0 03/18/24 17:35: Sodium 130 L, Potassium 4.4, Chloride 98 L, Carbon Dioxide 23, Anion Gap 9.0, BUN 55 H, Creatinine 1.3, Estimated GFR (MDRD) 55 L, Glucose 127 H, Calcium 9.1, Total Bilirubin 0.5, AST 15, ALT 10, Alkaline Phosphatase 24 L, Total Protein 6.5, Albumin 3.4, Globulin 3.1, Albumin/Globulin Ratio 1.1 03/18/24 17:35: PT 12.0, INR 1.1 03/18/24 17:35: Blood Type A POSITIVE, Antibody Screen NEGATIVE, Crossmatch IS Only See Detail Lab results reviewed: Yes Fish Bones: 03/19/24 11:08 03/19/24 05:12 Home Medications and Allergies Home Medications: Ambulatory Orders Amlodipine Besylate [Norvasc] 1 tab PO DAILY 03/19/24 Diphenoxylate/Atropine [Lomotil] 1 tab PO DAILY 03/19/24 Levothyroxine Sodium [Synthroid] 1 tab PO DAILY 03/19/24 Valsartan 1 tab PO DAILY 03/19/24 Active Medications Acetaminophen (Acetaminophen 325 Mg Tablet) 650 mg PO Q4HR PRN PRN Reason: Pain 1 to 4, or Fever Last Admin: 03/19/24 05:00 Dose: 650 mg Hydrocodone Bitart/Acetaminophen (Hydrocod/Acetam 5/325 Mg Tablet) 1 tab PO Q4HR PRN PRN Reason: Pain 5 to 7 Last Admin: 03/19/24 02:09 Dose: 1 tab Hydralazine HCl (Hydralazine Inj 20 Mg/Ml Vial) 10 mg IVP Q6HR PRN PRN Reason: [id number]>160 Pantoprazole Sodium 80 mg/ (Sodium Chloride) 100 mls @ 10 mls/hr IV .Q10H [facility] Last Admin: 03/19/24 07:42 Dose: 10 mls/hr Sodium Chloride (Normal Saline 0.9%) 1,000 mls @ 50 mls/hr IV .Q20H [facility] Last Admin: 03/18/24 21:31 Dose: 50 mls/hr Levothyroxine Sodium (Levothyroxine 25 Mcg Tablet) 25 mcg PO DAILY [facility] Last Admin: 03/19/24 08:45 Dose: 25 mcg Ondansetron HCl (Ondansetron 4 Mg/2 Ml Vial) 4 mg IVP Q6HR PRN PRN Reason: Nausea / Vomiting Sodium Chloride (Sodium Chloride Flush 0.9% 10 Ml Syringe) 10 ml IVP PRN PRN PRN Reason: NEEDED PER PROVIDER ORDERS Sodium Chloride (Sodium Chloride Flush 0.9% 10 Ml Syringe) 10 ml IVP 0100,0900,1700 [facility] Last Admin: 03/19/24 12:24 Dose: Not Given Omeprazole 40 mg PO DAILY 09/12/18 Amlodipine Besylate [Norvasc] 1 tab PO DAILY 03/19/24 Diphenoxylate/Atropine [Lomotil] 1 tab PO DAILY 03/19/24 Levothyroxine Sodium [Synthroid] 1 tab PO DAILY 03/19/24 Valsartan 1 tab PO DAILY 03/19/24 Allergies/Adverse Reactions: Allergies Allergy/AdvReac Type Severity Reaction Status Date / Time hydroxychloroquine Allergy Rash Verified 03/18/24 17:25 meperidine [From Demerol] Allergy Hives Verified 03/18/24 17:25 Penicillins Allergy Rash Verified 03/18/24 17:25 Anes History & Medical History - Anesthetic History Anesthesia Complications: reports: No previous complications - Medical History Cardiovascular: reports: Hypertension Pulmonary: reports: None Gastrointestinal: reports: GI bleed, Other Urinary: reports: None Neuro: reports: None Musculoskeletal: reports: None Endocrine/Autoimmune: reports: HyPOthyroidism Blood Disorders: reports: Anemia Skin: reports: None Smoking Status: Never smoker Psychosocial: reports: No issues indicated History of Cancer?: No - Surgical History General: reports: Colonoscopy, EGD Exam General: Alert, Oriented x3, Cooperative, No acute distress Dental: WNL Mouth Openin Fingerbreadth Neck Mobility: Normal Mallampati classification: II Thyromental Distance: 4-6 cm Mental/Cognitive Status: Alert/Oriented X3, Normal for patient Plan Anesthesia Type: General, Total IV Consent for Procedure(s) Verified and Reviewed: Yes Code Status: Attempt Resuscitation ASA classification: 3-Severe systemic disease Is this case an emergency?: Yes
--- NOTE | 2024-03-19 14:50 | PROVIDER PROGRESS NOTE ---
Subjective - Prog Note Date Prog Note Date: 03/19/24 Prog Note Time: 15:00 - Subjective Pt reports feeling: Improved, No change, Worse Subjective: This patient is a 68 year-old with a past medical history of colitis, hypertension, Barretts esophagus, and hypothyroid who came into the emergency department yesterday with dizziness that started in the morning. He is seen by GI in [place] and has had an EGD every two years for the past 15 years. He had a left finger fracture in January and has been taking naproxen daily since then. Pt also has chronic back pain. Two days prior to his ED visit, he developed dark/tarry stools and dizziness with presyncope. His baseline hemoglobin is 11 and his hemoglobin in the ED was 7. He was transfused with one unit of PRBCs and his hemoglobin increased to 7.2 overnight. He was made NPO and general surgery was consulted for EGD. He felt improved this morning after the blood products and his diet was advanced as general surgery, who felt that his bleed had resolved clinically. After eating this morning, the patient had a small bowel movement of dark/tarry stool and his repeat hemoglobin fell to 6.3. Pt was mad NPO and general surgery plans to take the patient for EGD this afternoon after a second unit of PRBCs. The patient complains of chronic back pain with movement, but denies any other pain. He states no chest pain, shortness of breath, dizziness, nausea, vomiting, or abdominal pain. States he feels better today. Plan for a second unit of PRBCs and EGD this afternoon. Reevaluate after EGD is competed. Objective - Vital Signs/Intake & Output Reviewed Vital Signs: Yes Vital Signs: Vital Signs x48h Temp Pulse Resp BP Pulse Ox 03/19/24 12:31 37 C 55 L 18 126/67 100 03/19/24 12:10 36.3 C L 59 L 18 119/69 99 03/19/24 09:30 36.6 C 57 L 18 126/70 99 Intake & Output: Intake & Output 03/16/24 03/17/24 03/18/24 03/19/24 23:59 23:59 23:59 23:59 Intake Total 1300 335 Output Total 350 1400 Balance 950 -1065 - Objective General Appearance: positive: No acute distress, Alert Eyes Bilateral: positive: Normal inspection, PERRL ENT: positive: ENT inspection nml, Pharynx nml Neck: positive: Nml inspection, Thyroid nml, No JVD, Trachea midline Respiratory: positive: Chest non-tender, No respiratory distress, Breath sounds nml Cardiovascular: positive: Regular rate & rhythm, No murmur, No gallop Abdomen: positive: Non-tender, No organomegaly, Nml bowel sounds, No distention. negative: Tenderness Skin: positive: No rash, Warm, Dry Extremities: positive: Non-tender, Nml appearance Neurologic/Psychiatric: positive: Oriented x3, Mood/affect nml - Lab Results Fish Bones: 03/19/24 11:08 03/19/24 05:12 Other Labs: Lab Results x24hrs 03/19/24 03/19/24 03/19/24 Range/Units 11:08 05:12 05:12 WBC 4.9 (4.8-10.8) x10^3/uL RBC 2.04 L (4.70-6.10) 10^6/uL Hgb 6.3 L* 7.1 L (14.0-18.0) g/dL Hct 20.4 L (42.0-52.0) % MCV 97.5 H (80.0-94.0) fL MCH 34.8 H (27.0-31.0) pg MCHC 35.7 (32.0-36.0) g/dL RDW 13.8 (12.0-15.0) % Plt Count 150 (130-450) 10^3/uL MPV 10.5 (7.4-11.4) fL Neut # (Auto) (1.5-6.6) 10^3/uL Lymph # (Auto) (1.5-3.5) 10^3/uL [place] # (Auto) (0.0-1.0) 10^3/uL Eos # (Auto) (0.0-0.7) 10^3/uL Baso # (Auto) (0.0-0.1) 10^3/uL Absolute Nucleated RBC x10^3/uL Nucleated RBC % /100WBC PT (9.9-12.6) secs INR (0.8-1.2) Sodium 133 L (135-145) mmol/L Potassium 4.1 (3.5-4.5) mmol/L Chloride 104 (101-111) mmol/L Carbon Dioxide 22 (21-32) mmol/L Anion Gap 7.0 (6-13) BUN 57 H (6-20) mg/dL Creatinine 1.2 (0.6-1.3) mg/dL Estimated GFR (MDRD) 60 L (>89) Glucose 93 (74-104) mg/dL Calcium 8.5 (8.5-10.3) mg/dL Phosphorus 3.5 (2.5-5.0) mg/dL Magnesium 1.6 L (1.7-2.3) mg/dL Total Bilirubin (0.2-1.0) mg/dL AST (10-42) IU/L ALT (10-60) IU/L Alkaline Phosphatase (42-121) IU/L Total Protein (6.4-8.9) g/dL Albumin (3.2-5.5) g/dL Globulin (2.1-4.2) g/dL Albumin/Globulin Ratio (1.0-2.2) Blood Type Blood Type Recheck Antibody Screen Crossmatch IS Only 03/19/24 03/18/24 03/18/24 Range/Units 02:11 17:39 17:39 WBC 6.1 (4.8-10.8) x10^3/uL RBC 1.98 L (4.70-6.10) 10^6/uL Hgb 7.2 L 7.0 L* (14.0-18.0) g/dL Hct 20.3 L (42.0-52.0) % MCV 102.5 H (80.0-94.0) fL MCH 35.4 H (27.0-31.0) pg MCHC 34.5 (32.0-36.0) g/dL RDW 12.0 (12.0-15.0) % Plt Count 206 (130-450) 10^3/uL MPV 10.5 (7.4-11.4) fL Neut # (Auto) 4.0 (1.5-6.6) 10^3/uL Lymph # (Auto) 1.6 (1.5-3.5) 10^3/uL [place] # (Auto) 0.4 (0.0-1.0) 10^3/uL Eos # (Auto) 0.1 (0.0-0.7) 10^3/uL Baso # (Auto) 0.0 (0.0-0.1) 10^3/uL Absolute Nucleated RBC 0.00 x10^3/uL Nucleated RBC % 0.0 /100WBC PT (9.9-12.6) secs INR (0.8-1.2) Sodium (135-145) mmol/L Potassium (3.5-4.5) mmol/L Chloride (101-111) mmol/L Carbon Dioxide (21-32) mmol/L Anion Gap (6-13) BUN (6-20) mg/dL Creatinine (0.6-1.3) mg/dL Estimated GFR (MDRD) (>89) Glucose (74-104) mg/dL Calcium (8.5-10.3) mg/dL Phosphorus (2.5-5.0) mg/dL Magnesium (1.7-2.3) mg/dL Total Bilirubin (0.2-1.0) mg/dL AST (10-42) IU/L ALT (10-60) IU/L Alkaline Phosphatase (42-121) IU/L Total Protein (6.4-8.9) g/dL Albumin (3.2-5.5) g/dL Globulin (2.1-4.2) g/dL Albumin/Globulin Ratio (1.0-2.2) Blood Type Blood Type Recheck A POSITIVE Antibody Screen Crossmatch IS Only 03/18/24 03/18/24 03/18/24 Range/Units 17:35 17:35 17:35 WBC (4.8-10.8) x10^3/uL RBC (4.70-6.10) 10^6/uL Hgb (14.0-18.0) g/dL Hct (42.0-52.0) % MCV (80.0-94.0) fL MCH (27.0-31.0) pg MCHC (32.0-36.0) g/dL RDW (12.0-15.0) % Plt Count (130-450) 10^3/uL MPV (7.4-11.4) fL Neut # (Auto) (1.5-6.6) 10^3/uL Lymph # (Auto) (1.5-3.5) 10^3/uL [place] # (Auto) (0.0-1.0) 10^3/uL Eos # (Auto) (0.0-0.7) 10^3/uL Baso # (Auto) (0.0-0.1) 10^3/uL Absolute Nucleated RBC x10^3/uL Nucleated RBC % /100WBC PT 12.0 (9.9-12.6) secs INR 1.1 (0.8-1.2) Sodium 130 L (135-145) mmol/L Potassium 4.4 (3.5-4.5) mmol/L Chloride 98 L (101-111) mmol/L Carbon Dioxide 23 (21-32) mmol/L Anion Gap 9.0 (6-13) BUN 55 H (6-20) mg/dL Creatinine 1.3 (0.6-1.3) mg/dL Estimated GFR (MDRD) 55 L (>89) Glucose 127 H (74-104) mg/dL Calcium 9.1 (8.5-10.3) mg/dL Phosphorus (2.5-5.0) mg/dL Magnesium (1.7-2.3) mg/dL Total Bilirubin 0.5 (0.2-1.0) mg/dL AST 15 (10-42) IU/L ALT 10 (10-60) IU/L Alkaline Phosphatase 24 L (42-121) IU/L Total Protein 6.5 (6.4-8.9) g/dL Albumin 3.4 (3.2-5.5) g/dL Globulin 3.1 (2.1-4.2) g/dL Albumin/Globulin Ratio 1.1 (1.0-2.2) Blood Type A POSITIVE Blood Type Recheck Antibody Screen NEGATIVE Crossmatch IS Only See Detail ABX Reporting Has patient been on IV antibiotics over the past 48 hours?: No Assessment/Plan - Problem List (1) Anemia Impression: Anemia likely due to upper GI bleed from NSAID use for recent finger fracture. Pt has had dark/tarry stools. Pt has a history of colitis, hypertension, Barahona's esophagus, and hypothyroid. Hemoglobin in the ED was 7 (baseline is ~11), and increased to 7.2 after one unit of PRBCs. Today, his hemoglobin fell to 6.3 and he had a small bowel movement that was dark and tarry. Second unit of PRBCs is being infused and the patient will be taken for EGD this afternoon. Reevaluate after EGD is complete and repeat CBC is done. Qualifiers: Anemia type: iron deficiency Iron deficiency anemia type: chronic blood loss Qualified Code(s): D50.0 - Iron deficiency anemia secondary to blood loss (chronic) (2) Upper GI bleed Impression: GI bleed from NSAID use for recent finger fracture with anemia. Pt has had dark/tarry stools. Pt has a history of colitis, hypertension, Barahona's esophagus, and hypothyroid. Hemoglobin in the ED was 7, and increased to 7.2 after one unit of PRBCs. Today, his hemoglobin fell to 6.3 and he had a small bowel movement that was dark and tarry. He will receive a second unit of PRBCs today and an EGD this afternoon. (3) Hypertension Impression: Managed outpatient. Hold home anti hypertensive. Hydralazine as needed and monitor BP. (4) Hypothyroidism Impression: Managed outpatient. Continue home dose of levothyroxine.
[2024-03-19] MEDS ORDERED: LIDOCAINE-MPF 2% 5 ML VIAL ONE (16:22)
[2024-03-19] MEDS ORDERED: PROPOFOL 200 MG/20 ML VIAL IVP ONE (16:23)
--- NOTE | 2024-03-19 18:45 | ANESTHESIA POST OP EVALUATION ---
Anesthesia Post Eval - Post Anesthesia Eval Vitals: Last Vital Signs Temp 37.0 C 03/19/24 16:23 Pulse 62 03/19/24 16:23 Resp 18 03/19/24 16:23 BP 130/74 03/19/24 16:23 Pulse Ox 96 03/19/24 16:23 O2 Flow Rate CV Function Including HR & BP: Stable Pain Control: Satisfactory Nausea & Vomiting: Negative Mental Status: Baseline Respiratory Status: Airway Patent Hydration Status: Satisfactory Anesthesia Complications: None
[2024-03-19] MEDS: ONDANSETRON 4 MG/2 ML VIAL IVP PRN (22:50)
[2024-03-20] MEDS: PANTOPRAZOLE 40 MG TABLET PO SCH (06:26)
[2024-03-20 08:10] LABS: BASOPHILS % (AUTO) 0.2 %; EOSINOPHILS % (AUTO) 0.3 %; HCT - HEMATOCRIT 20.9 % (42.0-52.0); HGB - HEMOGLOBIN 7.2 g/dL (14.0-18.0); LYMPHOCYTES # (AUTO) 1.2 10^3/uL (1.5-3.5); LYMPHOCYTES % (AUTO) 10.4 %; MEAN CORPUSCULAR HEMOGLOBIN 32.3 pg (27.0-31.0); MEAN CORPUSCULAR HGB CONC 34.4 g/dL (32.0-36.0); MEAN CORPUSCULAR VOLUME 93.7 fL (80.0-94.0); MEAN PLATELET VOLUME 10.6 fL (7.4-11.4); MONOCYTES # (AUTO) 0.6 10^3/uL (0.0-1.0); MONOCYTES % (AUTO) 5.2 %; NEUTROPHILS # (AUTO) 9.5 10^3/uL (1.5-6.6); NEUTROPHILS % (AUTO) 83.4 %; PLT - PLATELET COUNT 131 10^3/uL (130-450); RED BLOOD COUNT 2.23 10^6/uL (4.70-6.10); RED CELL DISTRIBUTION WIDTH 15.7 % (12.0-15.0); WHITE BLOOD COUNT 11.4 x10^3/uL (4.8-10.8)
[2024-03-20 08:16] LABS: CALCIUM 8.4 mg/dL (8.5-10.3); CREATININE 1.1 mg/dL (0.6-1.3); POTASSIUM 3.6 mmol/L (3.5-4.5)
--- NOTE | 2024-03-20 11:21 | PROVIDER PROGRESS NOTE ---
Subjective - General Admit Date: 03/18/24 Procedure Date: 03/19/24 Post Op Days: 1 Procedure Performed: EGD - Other Other Information/Narrative: EGD yesterday afternoon showing erosive gastritis and blood in duo. Transfused 1 more (3rd unite) PRBC overnight. HD normal, afebrile, denies abodminal pain or nausea this AM. Had a normal/nonblood BM this AM. reports he sounded confused when she spoke to him on the phone this morning (as he was waking up) but he is perfectly oriented, alert, and participating in conversation about his medical care this morning, including comprehensive information about his outpatient GI care. Objective - Patient Data Reviewed Vital Signs: Yes Vital Signs: Vital Signs x48h Temp Pulse Resp BP BP Pulse Ox 03/20/24 08:44 36.7 C 73 16 125/69 100 03/20/24 05:54 37.0 C 84 16 134/75 H 99 03/20/24 03:54 36.7 C 75 18 134/73 H 98 03/20/24 03:45 36.7 C 75 18 134/73 H 98 Weight: Weight 03/18/24 03/19/24 03/20/24 23:59 23:59 23:59 Weight (kg) 70 kg 70 kg Intake & Output: Intake and Output Totals x24h 03/18/24 03/19/24 03/20/24 23:59 23:59 23:59 Intake Total 1300 2103.833 2200 Output Total 350 1400 1440 Balance 950 703.833 760 - Lab Results Lab Results: 03/20/24 07:57 03/20/24 07:57 Other Lab Results: Lab Results x24hrs 03/20/24 03/20/24 03/19/24 Range/Units 07:57 07:57 19:21 WBC 11.4 H (4.8-10.8) x10^3/uL RBC 2.23 L (4.70-6.10) 10^6/uL Hgb 7.2 L 6.9 L* (14.0-18.0) g/dL Hct 20.9 L (42.0-52.0) % MCV 93.7 (80.0-94.0) fL MCH 32.3 H (27.0-31.0) pg MCHC 34.4 (32.0-36.0) g/dL RDW 15.7 H (12.0-15.0) % Plt Count 131 (130-450) 10^3/uL MPV 10.6 (7.4-11.4) fL Neut # (Auto) 9.5 H (1.5-6.6) 10^3/uL Lymph # (Auto) 1.2 L (1.5-3.5) 10^3/uL [place] # (Auto) 0.6 (0.0-1.0) 10^3/uL Eos # (Auto) 0.0 (0.0-0.7) 10^3/uL Baso # (Auto) 0.0 (0.0-0.1) 10^3/uL Absolute Nucleated RBC 0.00 x10^3/uL Nucleated RBC % 0.0 /100WBC Sodium 133 L (135-145) mmol/L Potassium 3.6 (3.5-4.5) mmol/L Chloride 104 (101-111) mmol/L Carbon Dioxide 22 (21-32) mmol/L Anion Gap 7.0 (6-13) BUN 41 H (6-20) mg/dL Creatinine 1.1 (0.6-1.3) mg/dL Estimated GFR (MDRD) 66 L (>89) Glucose 112 H (74-104) mg/dL Calcium 8.4 L (8.5-10.3) mg/dL Blood Type Antibody Screen Crossmatch IS Only 03/19/24 03/18/24 Range/Units 11:08 17:35 WBC (4.8-10.8) x10^3/uL RBC (4.70-6.10) 10^6/uL Hgb 6.3 L* (14.0-18.0) g/dL Hct (42.0-52.0) % MCV (80.0-94.0) fL MCH (27.0-31.0) pg MCHC (32.0-36.0) g/dL RDW (12.0-15.0) % Plt Count (130-450) 10^3/uL MPV (7.4-11.4) fL Neut # (Auto) (1.5-6.6) 10^3/uL Lymph # (Auto) (1.5-3.5) 10^3/uL [place] # (Auto) (0.0-1.0) 10^3/uL Eos # (Auto) (0.0-0.7) 10^3/uL Baso # (Auto) (0.0-0.1) 10^3/uL Absolute Nucleated RBC x10^3/uL Nucleated RBC % /100WBC Sodium (135-145) mmol/L Potassium (3.5-4.5) mmol/L Chloride (101-111) mmol/L Carbon Dioxide (21-32) mmol/L Anion Gap (6-13) BUN (6-20) mg/dL Creatinine (0.6-1.3) mg/dL Estimated GFR (MDRD) (>89) Glucose (74-104) mg/dL Calcium (8.5-10.3) mg/dL Blood Type A POSITIVE Antibody Screen NEGATIVE Crossmatch IS Only See Detail - Current Medications Current Medications: Current Medications Generic Name Dose Route Start Last Admin Trade Name Freq PRN Reason Stop Dose Admin Acetaminophen 650 mg 03/18/24 20:05 03/19/24 05:00 Acetaminophen 325 Mg Tablet PO 650 mg Q4HR PRN Administration Pain 1 to 4, or Fever Hydrocodone Bitart/Acetaminophen 1 tab 03/18/24 20:05 03/19/24 02:09 Hydrocod/Acetam 5/325 Mg Tablet PO 1 tab Q4HR PRN Administration Pain 5 to 7 Sodium Chloride 1,000 mls @ 50 mls/hr 03/18/24 21:00 03/19/24 16:32 Normal Saline 0.9% IV 50 mls/hr .Q20H [facility] Administration Levothyroxine Sodium 25 mcg 03/19/24 09:00 03/20/24 09:05 Levothyroxine 25 Mcg Tablet PO 25 mcg DAILY [facility] Administration Ondansetron HCl 4 mg 03/18/24 20:05 03/19/24 22:50 Ondansetron 4 Mg/2 Ml Vial IVP 4 mg Q6HR PRN Administration Nausea / Vomiting Pantoprazole Sodium 40 mg 03/20/24 07:00 03/20/24 06:26 Pantoprazole 40 Mg Tablet PO 40 mg QDAC [facility] Administration Sodium Chloride 10 ml 03/19/24 01:00 03/20/24 09:05 Sodium Chloride Flush 0.9% 10 Ml Syringe IVP 10 ml 0100,0900,1700 [facility] Administration - Physical Exam General Appearance: positive: No acute distress, Alert Eyes Bilateral: positive: Normal inspection, PERRL ENT: positive: ENT inspection nml, Pharynx nml Neck: positive: Nml inspection, No JVD Respiratory: positive: Chest non-tender, No respiratory distress, Breath sounds nml Cardiovascular: positive: Regular rate & rhythm Abdomen: positive: Non-tender, No organomegaly, Nml bowel sounds, No distention Back: positive: Nml inspection Skin: positive: Color nml, No rash, Warm, Dry Extremities: positive: Non-tender, Full ROM, Nml appearance Neurologic/Psychiatric: positive: Oriented x3, Mood/affect nml ABX Reporting Has patient been on IV antibiotics over the past 48 hours?: No Impression/Plan - Problem List Problem List: 68yoM admitted for GIB found to have UGIB on EGD yesterday - erosive gastritis with blood in the duodenum. Clinically bleed has stopped (normal BM this AM, HD normal) and hgb 7.2 from 6.9 this morning after 3rd unit of PRBC overnight after the EGD. Agree with repeating H&H to ensure stable today, if stable OK for DC home Avoid NSAIDs, continue home PPI, DC with carafate May call surgery clinic for pathology results of random gastric biopsies Patient should follow up with established GI provider re known barretts that was seen on EGD Magui Avendano DO, FACS General Surgeon, [facility]
[2024-03-20 12:35] LABS: BASOPHILS % (AUTO) 0.4 %; EOSINOPHILS # (AUTO) 0.1 10^3/uL (0.0-0.7); EOSINOPHILS % (AUTO) 0.5 %; HCT - HEMATOCRIT 21.3 % (42.0-52.0); HGB - HEMOGLOBIN 7.2 g/dL (14.0-18.0); LYMPHOCYTES # (AUTO) 1.7 10^3/uL (1.5-3.5); LYMPHOCYTES % (AUTO) 15.3 %; MEAN CORPUSCULAR HGB CONC 33.8 g/dL (32.0-36.0); MEAN CORPUSCULAR VOLUME 94.7 fL (80.0-94.0); MEAN PLATELET VOLUME 10.8 fL (7.4-11.4); MONOCYTES # (AUTO) 0.5 10^3/uL (0.0-1.0); MONOCYTES % (AUTO) 4.8 %; NEUTROPHILS # (AUTO) 8.5 10^3/uL (1.5-6.6); NEUTROPHILS % (AUTO) 78.5 %; PLT - PLATELET COUNT 132 10^3/uL (130-450); RED BLOOD COUNT 2.25 10^6/uL (4.70-6.10); RED CELL DISTRIBUTION WIDTH 15.8 % (12.0-15.0); WHITE BLOOD COUNT 10.9 x10^3/uL (4.8-10.8)
--- NOTE | 2024-03-20 13:41 | Discharge Plan ---
Discharge Plan Problem Reviewed?: Yes Disposition: Home, Self Care Condition: Fair Prescriptions: Sucralfate [Carafate] 1 gm PO ACHS 30 Days #1200 ml Pantoprazole [Protonix] 40 mg PO BID #60 tablet Diet: Regular Activity Restrictions: Activity as Tolerated Shower Restrictions: No Driving Restrictions: No Health Concerns: You are a gentleman who has microscopic colitis and you get your immunotherapy infusions at a GI office in [place]. You also have your hand tier with your upper and lower endoscopies and [facility]. You recently hurt the fingers on your left hand and has been taking Naprosyn to control the pain and inflammation. Been going on for a few weeks. You presented to the emergency room because you were having black tarry stools for a day. When you got to the emergency room and almost passed out and had a large black liquid bowel movement. Found to be severely anemic. A normal amount of blood in the gentleman is between 12 to 14 g of hemoglobin. The emergency room you were 7.0. We transfused you 1 unit of blood and you continue to have black tarry stool and the repeat hemoglobin was 6.3. We hoped that you would stop bleeding on your own. And that you would just need an outpatient endoscopy to follow-up on your Barahona's esophagus. But with the continued drop in hemoglobin and a third unit of blood needed, you underwent an endoscopy. The endoscopy does show multiple gastric erosions consistent with nonsteroidal therapy. You continue to have esophageal mucosal changes consistent with short segment Barahona's esophagus in the lower one third of your esophagus. There was blood present in the duodenum but no ulcer. After your third unit of blood, hemoglobin went from 6.9 to 7.2. We advanced your diet. You tolerated that. You did not have further episodes of black tarry stool. A final repeat on the day of discharge showed your hemoglobin is a stable at 7.2. Plan of Treatment: 1. Please take Protonix 40 mg twice a day for the next month. Also take sucralfate 1 g before each meal for the next 30 days. This will help heal any of the erosions you have in your stomach and thereby stop you from having bleeding. 2. I prescribed iron tablets to take for the next 2 months to help build up your bone marrow so that you can have a normal amount of blood in your system. The iron tablet is once a day. It will make your stool dark or black. It does not mean that you have bleeding again. 3. See your hand tier in follow-up in the next 2 to 3 weeks so that they can know that you are here. The pathology results of your esophagogastroduodenoscopy are pending. You can either call Dr. Ledesma office at [phone] or call your own hand tier in the next week. Your endoscopy was done March 19. It will take 5 business days for the pathology to be back. That would mean March 27. 4. I cannot stress this next instruction enough. For the rest of your life you cannot take any nonsteroidal therapy. If you want to take a pain medicine I would recommend [id number] Tylenol. Care Goals: To have that your stomach ulcers heal and to recover from your anemia Assessment: patient is alert, oriented to person, place, time and situation No Smoking: If you smoke, Please STOP! Call for help.
--- NOTE | 2024-03-20 13:55 | DISCHARGE SUMMARY ---
"Discharge Summary Admit Date: 03/18/24 Discharge Date: 03/20/24 Discharging Provider: Glenna Breaux MD Primary Care Provider: Jovi Chan MD Code Status: Attempt Resuscitation Condition at Discharge: Fair Discharge Disposition: 01 Home, Self Care - DIAGNOSES Discharge Diagnoses with Status of Each Condition: 1. Melena 2. Gastrointestinal hemorrhage due to nonsteroidal anti-inflammatory drug 4. Acute blood loss anemia 5. Hypertension 6. Hypothyroidism - HPI History of Present Illness: 68M c microscopy colitis, htn, and hypothyroidism who presents to the ED with dizziness that started this morning when he woke up. He has been having dark tarry stools for the past three days. Patient reports being on Advil and then recently Naproxen for a broken finger. Patient denies any new medications. No trauma. No n/v. No chest pain. No palpitation. No SOB. No trauma. No LOC Here in the ED, patient is noted for hgb 7 which is drop from baseline 11. ED spoke with Gen surgery who will consult and provide endoscopy. - Past Medical History Cardiovascular: reports: None Endocrine/Autoimmune: reports: None MRSA Hx?: No - CONSULTS | PROCEDURES Consultations: General Surgery, Dr. Robin Ledesma Procedures: 1. CT angiogram of the abdomen did not show any localized potential source of GI bleeding. Mild wall thickening of the distal stomach and duodenum. Colonic diverticulosis without diverticulitis. However there is greater than expected wall thickening of the sigmoid colon and rectum which may represent proctocol itis this other infectious or inflammatory. 2. Transfusion of 3 units of packed red cells 3. Esophagogastroduodenoscopy March 19 showing gastric erosions most likely due to nonsteroidal therapy. Fresh blood in the duodenum without any active source of bleeding. 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 Biopsies were done. This is a holiday weekend and pathology will most likely not be available till March 27. - HOSPITAL COURSE Hospital Course: The patient was initially placed in observation status thinking that his bleeding was stopped. It did not. He required 1 unit of blood for hemoglobin of 7.0 accompanied by lightheadedness, fatigue. Repeat hemoglobin dropped to 6.3 after the 1 unit of blood and he was transfused a second unit of blood. He then underwent a EGD which showed the erosions in the stomach most likely due to nonsteroidal therapy. Fresh blood in the duodenum. A repeat hemoglobin showed an to be 6.9 after that second unit of blood and asked that he was transfused a thrid unit of blood and went to 7.2. On the day of discharge he remained stable at 7.2 g of hemoglobin. No further black tarry stools. Was advanced to a normal diet and was tolerating that well. He was anxious to go home. Instructions to the patient were very specific with regards to the use of nonsteroidals. I told him that for the rest of his life he cannot have any nonsteroidal therapy. The only [id number] drug he could try is Tylenol. I also started him on ferrous gluconate 324 mg daily to take for the next month. I have asked him to do Protonix 40 mg twice daily, and sucralfate AC and at bedtime. That would also be for the next month. He gets his care with the gastroenterology service for his microscopic colitis. The GI specialist with the EGD and colonoscopy is located at [facility]. Where he gets his infusions further microscopic colitis is in [facility]. I have asked him to follow-up with his gastroenterology specialist. His gastroenterology specialist can ask for the biopsy results of his EGD. Or he can call Dr. Ledesma office at [phone] to get a copy or discuss the results on March 27. I said to aim for March 27 as it would be 5 working days before he can get his biopsy results. At discharge, he is a short statured, tanned elderly gentleman who looks slightly older than stated age. accompanies from. She says that he seems a little more confused this morning than he usually is but seemed to recover over the course of the morning into the afternoon. He is comfortable without nausea, chest pain. Lungs are clear to auscultation and percussion. Regular rate and rhythm. Abdomen is soft, nontender. Nondistended. Greater than 30 minutes was spent coordinating discharge This document was made in part using voice recognition software. While efforts are made to proofread this document, sound alike and grammatical errors may occur. - ALLERGIES Allergies/Adverse Reactions: Allergies Allergy/AdvReac Type Severity Reaction Status Date / Time hydroxychloroquine Allergy Rash Verified 03/18/24 17:25 meperidine [From Demerol] Allergy Hives Verified 03/18/24 17:25 Penicillins Allergy Rash Verified 03/18/24 17:25 - MEDICATIONS Home Medications: Ambulatory Orders Medication Instructions Recorded Confirmed Amlodipine Besylate [Norvasc] 1 tab PO DAILY 03/19/24 03/19/24 Diphenoxylate/Atropine [Lomotil] 1 tab PO DAILY 03/19/24 03/19/24 Levothyroxine Sodium [Synthroid] 1 tab PO DAILY 03/19/24 03/19/24 Valsartan 1 tab PO DAILY 03/19/24 03/19/24 Ferrous Gluconate 324 mg PO DAILY #30 tablet 03/20/24 Pantoprazole [Protonix] 40 mg PO BID #60 tablet 03/20/24 Sucralfate [Carafate] 1 gm PO ACHS 30 Days #1200 ml 03/20/24 - LABS Result Diagrams: 03/20/24 12:20 03/20/24 07:57"
[2024-03-20 14:11] VITALS: BP 139/81; O2SAT 99
== END 2024-03-20 14:15 | disposition home or self-care (01) | DRG 378 ==
LOC: ED 16:57 → MS2 20:05
PROVIDERS: ADMIT Internal Medicine; ATTEND Specialist
PROC: 30233N1 Transfusion of Nonautologous Red Blood Cells into Peripheral Vein, Percutaneous Approach (ICD-10-PCS; 2024-03-18)
PROC: 0DB78ZX Excision of Stomach, Pylorus, Via Natural or Artificial Opening Endoscopic, Diagnostic (ICD-10-PCS; principal; 2024-03-19 15:00)
DX: K92.2 Gastrointestinal hemorrhage, unspecified (principal); R55 Syncope and collapse; E87.1 Hypo-osmolality and hyponatremia; D53.9 Nutritional anemia, unspecified; R93.3 Abnormal findings on diagnostic imaging of other parts of digestive tract; K29.71 Gastritis, unspecified, with bleeding; D62 Acute posthemorrhagic anemia; T39.395A Adverse effect of other nonsteroidal anti-inflammatory drugs [NSAID], initial encounter; I10 Essential (primary) hypertension; E03.9 Hypothyroidism, unspecified; K57.30 Diverticulosis of large intestine without perforation or abscess without bleeding; K22.70 Barrett's esophagus without dysplasia; Z79.890 Hormone replacement therapy; Z79.899 Other long term (current) drug therapy
CPT/HCPCS: 36415; 36430; 74174; 80048; 80053; 83735; 84100; 85018; 85025; 85027; 85610; 86850; 86900; 86901; 86920; 96374; 99285; A9270; P9016; Q9967